=== PATIENT | male | born 1945 | race Caucasian/White ===

== ENCOUNTER → 2021-01-08 | Outpatient (CLI) | payer OTHER ==
[~2021-01-08] MED LIST: HYDCHL50 PO; LOTREL 10-20 M1 EACH PO
== END | disposition home or self-care (01) ==
LOC: LAB 14:10 → LAB SHORT 14:10
DX: C31.9 Malignant neoplasm of accessory sinus, unspecified (principal); R22.1 Localized swelling, mass and lump, neck
CPT/HCPCS: 88173; 88305; 88312

== ENCOUNTER 2021-01-17 10:15 | Day surgery (SDC) | payer OTHER ==
[~2021-01-17] VITALS: Ht 172.7 cm; Wt 68.0 kg
[2021-01-17] MEDS ORDERED: LOTREL 10-20 M1 EACH PO (10:40)
[2021-01-17] MEDS ORDERED: HYDCHL50 PO (10:41)
--- NOTE | 2021-01-17 12:14 | NUR ---
[facility] in [facility] warming gown applied. History, Chart, Medications and Allergies reviewed before start of procedure.Lungs clear T/O to Auscultation. Patient confirms NPO status and agrees with scheduled surgery. Patient States Post-Procedure ride home has been arranged.
--- NOTE | 2021-01-17 16:23 | NUR ---
PT NEEDING TO USE WALKER FOR AMBULATION FROM CHRONIC RIGHT SIDED DEFICTIS. AT BEDSIDE STATES PT IS PRETTY MUCH BACK TO BASELINE. TOLERATED PO FLUIDS. DENIED NEED FOR PAIN MEDS. PT STATED HE HAS NASAL RINSE KIT AND AFRIN SPRAY, ALSO BACITRACIN. PT HAD NO SIGNS OF NOSE BLEEDING T/O STEP TIME. INCISION TO LEFT OF NECK REMAINED CDI. INITIALLY RECEIVED REPORT FROM REUBEN SIMONS RN. PT WAS ABLE TO URINATE WITHOUT DIFFICULTY. ALL BELONINGS RETURNED TO PATIENT.
== END 2021-01-17 16:00 | disposition home or self-care (01) ==
LOC: ORSCMMR 10:15 → ORD 11:45 → ORSCMMR 11:45
PROVIDERS: Otolaryngology
PROC: 099R4ZZ Drainage of Left Maxillary Sinus, Percutaneous Endoscopic Approach (ICD-10-PCS; principal; 2021-01-17 11:45)
PROC: 07B20ZX Excision of Left Neck Lymphatic, Open Approach, Diagnostic (ICD-10-PCS; principal; 2021-01-17 11:45)
DX: C31.9 Malignant neoplasm of accessory sinus, unspecified (principal); R22.1 Localized swelling, mass and lump, neck; I10 Essential (primary) hypertension; J44.9 Chronic obstructive pulmonary disease, unspecified; F17.210 Nicotine dependence, cigarettes, uncomplicated; Z79.899 Other long term (current) drug therapy
CPT/HCPCS: 88305; 88307; 88311; 88341; 88342; A9270; J0171; J1100; J2250; J2370; J2405; J2704; J3010; J7120